=== PATIENT | male | born 1960 | race Two or more races ===

== ENCOUNTER 2019-09-15 16:25 | Emergency (ER) | payer OTHER ==
[~2019-09-15] VITALS: Ht 162.6 cm; Wt 71.0 kg
[2019-09-15 16:32] VITALS: BP 128/77
[2019-09-15] MEDS ORDERED: KETOROLAC 30 MG/1 ML IM ONE (17:00)
[2019-09-15] MEDS ORDERED: KETOROLAC 30 MG/1 ML ONE (17:02)
== END 2019-09-15 19:02 | disposition home or self-care (01) ==
LOC: ED 18:35
DX: G89.11 Acute pain due to trauma (principal); M54.2 Cervicalgia; M54.5 Low back pain; M19.91 Primary osteoarthritis, unspecified site; I10 Essential (primary) hypertension; E11.9 Type 2 diabetes mellitus without complications; E78.5 Hyperlipidemia, unspecified; V49.49XA Driver injured in collision with other motor vehicles in traffic accident, initial encounter; Y93.89 Activity, other specified; Y92.410 Unspecified street and highway as the place of occurrence of the external cause; Y99.8 Other external cause status
CPT/HCPCS: 72110; 72125; 96372; 99284; J1885